=== PATIENT | male | born 1950 | race Caucasian/White ===

== ENCOUNTER 2021-09-09 07:26 | Day surgery (SDC) | payer MEDICARE ==
[2021-09-09] MEDS ORDERED: Sodium Chloride 0.9% 10 ML Syringe IV ONE (07:27)
[2021-09-09] MEDS ORDERED: Dexamethasone 4 MG/ML SDV IV ONE (07:27)
[2021-09-09] MEDS ORDERED: Midazolam 1 MG/ML 2 ML SDV IV ONE (07:27)
[2021-09-09] MEDS ORDERED: Acetaminophen/Codeine 300-30 MG Tab PO PRN (08:00)
[2021-09-09] MEDS ORDERED: Tobramycin 0.3% Ophth Drops 5 ML Bottle EYERT ONE (08:00)
[2021-09-09] MEDS ORDERED: Acetaminophen 325 MG Tab PO PRN (08:00)
[2021-09-09] MEDS ORDERED: Ondansetron 4 MG/2 ML SDV IVPUSH PRN (08:00)
[2021-09-09] MEDS: Proparacaine 0.5% Ophth Soln 15 ML Bottle EYERT ONE (08:08)
[2021-09-09] MEDS: Sodium Chloride 0.9% 10 ML Syringe FLUSH PRN (08:08)
[2021-09-09] MEDS: Moxifloxacin 0.5% Ophth Soln 3 ML Bottle EYERT ONE (08:10)
[2021-09-09] MEDS: Povidone-Iodine 5% Sterile Ophth Soln 30 ML Bottle EYERT ONE ×2 (08:10→09:42)
[2021-09-09] MEDS: Tropicamide 1% Ophth Soln 15 ML Bottle EYERT ONE (08:11)
[2021-09-09] MEDS: Phenylephrine 10% Ophth Soln 5 ML Bot EYERT PRN (08:12)
[2021-09-09] MEDS: Timolol Maleate 0.5% Ophth Soln 5 ML Bottle EYERT ONE (08:12)
[2021-09-09] MEDS: Cataract Ophth Solution EYERT ONE (08:14)
[2021-09-09] MEDS: Diclofenac Sodium 0.1% Ophth Soln 5 ML Bottle EYERT ONE (09:42)
[2021-09-09] MEDS: Tetracaine HCl/PF 0.5% 4 ML Bottle EYERT ONE (09:42)
[2021-09-09] MEDS: Balanced Salt Solution Ophth Irrig 500 ML Bottle IOCULAR ONE (09:43)
[2021-09-09] MEDS: Chondroitin Sulfate/Hyaluronate Sodium Ophth Inj 0.75 ML Syringe EYERT ONE (09:43)
[2021-09-09] MEDS: Apraclonidine 0.5% Ophth Soln 5 ML Bot EYERT ONE (09:43)
[2021-09-09] MEDS: Dexamethasone/Neomycin/Polymyxin B Ophth Oint 3.5 GM Tube EYERT ONE (09:43)
[2021-09-09] MEDS: Vancomycin 500 MG SDV EYERT ONE (09:44)
[2021-09-09] MEDS: Lidocaine 1% 30 ML SDV ONE (09:44)
--- NOTE | 2021-09-10 07:17 | OR ---
DATE: 09/09/2021 PREOPERATIVE DIAGNOSIS: Visually significant mixed cataract, right eye. POSTOPERATIVE DIAGNOSIS: Visually significant mixed cataract, right eye. PROCEDURE: Extracapsular cataract extraction with intraocular lens implant, right eye. ANESTHESIA: Topical/local MAC. COMPLICATIONS: None. INDICATIONS: Mr. Dahl was seen in the clinic. He has complained of a progressive decrease in vision. He has difficulty seeing books, feels like he is looking through a frosted window. He saw his regular neon light installer, Dr. Castillo. Dr. Castillo was not able to improve his vision and meet his visual needs with a change in glasses. I explained options, offered cataract surgery, and I explained risks including the potential for infection, retinal detachment, loss of vision, and need for additional surgery, amongst others. We discussed implant options. He has requested a toric implant. He understands that he may still require glasses for some activities. He also has a history of previous radial keratotomy and astigmatic keratotomy in the distant past. I explained that refractive predictability is significantly decreased because of the prior corneal procedure. He voiced understanding and requested surgery to improve vision and function. OPERATIVE DESCRIPTION: After informed consent was obtained and the risks, benefits, and alternatives were explained, the patient was brought to the operative suite and topical anesthesia was administered. The patient was then prepped and draped in the sterile fashion and attention was placed on the right eye. A sterile lid speculum was placed into the right eye to allow operative exposure. A full-thickness paracentesis was made in the temporal portion of the operative eye. Preservative-free lidocaine 0.1 mL was injected into the anterior chamber followed by viscoelastic. A full-thickness corneal incision was then made into the anterior chamber. A bent needle cystotome was used to create a small babs in the anterior capsule. The capsulorrhexis forceps was then used to create a 360-degree curvilinear capsulorrhexis. The nucleus was then removed using a phacoemulsification handpiece and the remaining cortical material was then removed with irrigation and aspiration handpiece. Following removal of the cortical material, the capsular bag was then inspected and noted to be free of any holes or tears. Viscoelastic was then injected into the capsular bag and the intraocular lens was inserted into the capsular bag. The implant was oriented to correspond with preoperative corneal rivera made with the patient in the upright position. The viscoelastic material was then removed from both the anterior and posterior chambers and from behind the IOL. The lens and capsular bag were then reinspected. The IOL was well centered and the capsular bag intact. The wound and paracentesis sites were inspected and hydrated with balanced saline solution. Both were found to be self-sealing. The intraocular pressure was assessed digitally and found to be within normal range. A good red reflex was noted at the completion of the procedure. No complications occurred during the operation. At the completion of the procedure, Maxitrol, Voltaren, and Iopidine drops were placed into the operative eye. A sterile eye shield was placed over the operative eye and the patient was transported to the postoperative recovery area having tolerated the procedure well. Postoperative instructions were given along with a postoperative appointment. The patient was advised to call with any questions or concerns. [facility] /[id number]
== END 2021-09-09 10:45 | disposition home or self-care (01) ==
LOC: DL.SDS 07:26
PROVIDERS: ATTEND Ophthalmology
DX: H26.8 Other specified cataract (principal); I25.10 Atherosclerotic heart disease of native coronary artery without angina pectoris; E78.5 Hyperlipidemia, unspecified; I10 Essential (primary) hypertension; E66.9 Obesity, unspecified; Z98.890 Other specified postprocedural states; I35.0 Nonrheumatic aortic (valve) stenosis
CPT/HCPCS: 00142; A9270-GY; J1100; J2250; J3370

== ENCOUNTER 2021-10-14 09:08 | Day surgery (SDC) | payer MEDICARE ==
[2021-10-14] MEDS ORDERED: Sodium Chloride 0.9% 10 ML Syringe IV ONE (09:09)
[2021-10-14] MEDS ORDERED: Midazolam 1 MG/ML 2 ML SDV IV ONE (09:09)
[2021-10-14] MEDS ORDERED: Dexamethasone 4 MG/ML SDV IV ONE (09:09)
[2021-10-14] MEDS ORDERED: Ondansetron 4 MG/2 ML SDV IVPUSH PRN (09:15)
[2021-10-14] MEDS ORDERED: Moxifloxacin 0.5% Ophth Soln 3 ML Bottle EYELF ONE (09:15)
[2021-10-14] MEDS ORDERED: Timolol Maleate 0.5% Ophth Soln 5 ML Bottle EYELF ONE (09:15)
[2021-10-14] MEDS ORDERED: Tropicamide 1% Ophth Soln 15 ML Bottle EYELF ONE (09:15)
[2021-10-14] MEDS ORDERED: Acetaminophen/Codeine 300-30 MG Tab PO PRN (09:15)
[2021-10-14] MEDS ORDERED: Tobramycin 0.3% Ophth Drops 5 ML Bottle EYELF SCH (09:15)
[2021-10-14] MEDS ORDERED: Cataract Ophth Solution EYELF ONE (09:15)
[2021-10-14] MEDS ORDERED: Phenylephrine 10% Ophth Soln 5 ML Bot EYELF ONE (09:15)
[2021-10-14] MEDS ORDERED: Povidone-Iodine 5% Sterile Ophth Soln 30 ML Bottle EYELF ONE ×2 (09:15→10:22)
[2021-10-14] MEDS ORDERED: Acetaminophen 325 MG Tab PO PRN (09:15)
[2021-10-14] MEDS ORDERED: Proparacaine 0.5% Ophth Soln 15 ML Bottle EYELF ONE (09:15)
[2021-10-14] MEDS ORDERED: Tetracaine HCl/PF 0.5% 4 ML Bottle EYELF ONE (10:22)
[2021-10-14] MEDS ORDERED: Chondroitin Sulfate/Hyaluronate Sodium Ophth Inj 0.75 ML Syringe EYELF ONE (10:23)
[2021-10-14] MEDS ORDERED: Apraclonidine 0.5% Ophth Soln 5 ML Bot EYELF ONE (10:23)
[2021-10-14] MEDS ORDERED: Diclofenac Sodium 0.1% Ophth Soln 5 ML Bottle EYELF ONE (10:23)
[2021-10-14] MEDS ORDERED: Dexamethasone/Neomycin/Polymyxin B Ophth Oint 3.5 GM Tube EYELF ONE (10:23)
[2021-10-14] MEDS ORDERED: Balanced Salt Solution Ophth Irrig 500 ML Bottle IOCULAR ONE (10:23)
[2021-10-14] MEDS ORDERED: Vancomycin 500 MG SDV EYELF ONE (10:24)
[2021-10-14] MEDS ORDERED: Lidocaine 1% 30 ML SDV ONE (10:24)
--- NOTE | 2021-10-15 09:54 | OR ---
DATE: 10/14/2021 PREOPERATIVE DIAGNOSIS: Visually significant mixed cataract, left eye. POSTOPERATIVE DIAGNOSIS: Visually significant mixed cataract, left eye. PROCEDURE: Extracapsular cataract extraction with intraocular lens implant, left eye. ANESTHESIA: Topical/local MAC. COMPLICATIONS: None. INDICATION: Mr. Dahl was seen in the clinic with complaints of blurred vision. Examination revealed visually significant mixed cataract. He is unhappy with his vision noticing a slow progressive change. He did see Dr. Castillo. Dr. Castillo was not able to improve his vision and meet his visual needs with a change in glasses. He has difficulty with multiple activities of daily living including driving, reading, and notes his vision feels like he is looking through a window. I offered cataract surgery and I explained risks including but not limited to infection, retinal detachment, loss of vision and need for additional surgery amongst others. We discussed implant options. He has requested a toric implant. He has a history of radial keratotomy and astigmatic keratotomy. I explained that his refractive predictability is significantly decreased because of the prior procedure. He also understands that he may need glasses regardless of implant choice. He has voiced understanding with respect to risks and limitations and wished to proceed. OPERATIVE DESCRIPTION: After informed consent was obtained and the risks, benefits, and alternatives were explained, the patient was brought to the operative suite and topical anesthesia was administered. The patient was then prepped and draped in the sterile fashion and attention was placed on the left eye. A sterile lid speculum was placed into the left eye to allow operative exposure. A full-thickness paracentesis was made in the temporal portion of the operative eye. Preservative-free lidocaine 0.1 mL was injected into the anterior chamber followed by viscoelastic. A full-thickness corneal incision was then made into the anterior chamber. A bent needle cystotome was used to create a small babs in the anterior capsule. The capsulorrhexis forceps was then used to create a 360-degree curvilinear capsulorrhexis. The nucleus was then removed using a phacoemulsification handpiece and the remaining cortical material was then removed with irrigation and aspiration handpiece. Following removal of the cortical material, the capsular bag was then inspected and noted to be free of any holes or tears. Viscoelastic was then injected into the capsular bag and the intraocular lens was inserted into the capsular bag. The implant was oriented to correspond with preoperative corneal rivera made with the patient in the upright position. The viscoelastic material was then removed from both the anterior and posterior chambers and from behind the IOL. The lens and capsular bag were then reinspected. The IOL was well centered and the capsular bag intact. The wound and paracentesis sites were inspected and hydrated with balanced saline solution. Both were found to be self-sealing. The intraocular pressure was assessed digitally and found to be within normal range. A good red reflex was noted at the completion of the procedure. No complications occurred during the operation. At the completion of the procedure, Maxitrol, Voltaren, and Iopidine drops were placed into the operative eye. A sterile eye shield was placed over the operative eye and the patient was transported to the postoperative recovery area having tolerated the procedure well. Postoperative instructions were given along with a postoperative appointment. The patient was advised to call with any questions or concerns. [facility] /[id number]
== END 2021-10-14 11:43 | disposition home or self-care (01) ==
LOC: DL.SDS 09:08
PROVIDERS: ATTEND Ophthalmology
DX: H26.8 Other specified cataract (principal); I10 Essential (primary) hypertension; I25.10 Atherosclerotic heart disease of native coronary artery without angina pectoris; E66.9 Obesity, unspecified; Z79.899 Other long term (current) drug therapy; Z79.82 Long term (current) use of aspirin
CPT/HCPCS: 00142; A9270-GY; J1100; J2250; J3370

== ENCOUNTER 2024-08-17 11:27 | Emergency (ER) | payer MEDICARE ==
[2024-08-17] MEDS ORDERED: Sodium Chloride 0.9% 10 ML Syringe FLUSH PRN (11:48)
[2024-08-17 12:02] LABS: BASOPHILS PERCENT AUTO 0.3 % (0.0-1.0); EOSINOPHILS PERCENT AUTO 0.2 % (1.0-3.0); HEMOGLOBIN 15.2 g/dL (14.0-18.0); LYMPHOCYTES PERCENT AUTO 11.6 % (20.5-50.1); MEAN CORPUSCULAR HEMOGLOBIN 30.7 pg (27.0-34.0); MEAN CORPUSCULAR VOLUME 92.9 fL (80-100); MONOCYTES PERCENT AUTO 12.1 % (2-8); NEUTROPHILS PERCENT AUTO 75.8 % (42.2-75.2); PLATELET COUNT,PLT 312 10^3/uL (150-450); RED BLOOD CELL COUNT 4.95 10^6/uL (4.6-6.2)
[2024-08-17] MEDS: Metoprolol Tartrate 5 MG/5 ML SDV IVPUSH ONE (12:10)
[2024-08-17] MEDS: Sodium Chloride 0.9% 1,000 ML IV ONE (12:10)
[2024-08-17 12:20] LABS: INR 1.1 (0.9-1.2); PROTHROMBIN TIME 11.3 SEC (9.0-12.0); PTT,PARTIAL THROMBOPLSTIN TIME 26.3 SEC (22.0-34.0)
[2024-08-17 12:23] LABS: ALBUMIN 3.7 g/dL (3.4-5.0); ANION GAP 14.3 mEq/L (7-13); BILIRUBIN TOTAL 0.9 mg/dL (0.2-1.0); CALCIUM 9.9 mg/dL (8.5-10.1); CREATININE 1.4 mg/dL (0.70-1.30); POTASSIUM,K 4.3 mmol/L (3.5-5.1); PROTEIN TOTAL,TP 7.3 g/dL (6.4-8.2)
[2024-08-17] MEDS: Heparin Sodium 5,000 Units/ML Vial IVPUSH ONE (12:35)
[2024-08-17] MEDS: Heparin Sodium/0.45% NaCl 25,000 UNITS/500 ML BAG IV SCH (12:37)
[2024-08-17] MEDS: Ketamine 500 mg/10 ML MDV IV ONE (13:10)
[2024-08-17] MEDS: Aspirin 81 MG Tab.Chew PO ONE (14:00)
== END 2024-08-17 14:05 ==
LOC: DL.ED 11:27
DX: I21.4 Non-ST elevation (NSTEMI) myocardial infarction (principal); I10 Essential (primary) hypertension; I25.10 Atherosclerotic heart disease of native coronary artery without angina pectoris; E78.00 Pure hypercholesterolemia, unspecified; Z79.899 Other long term (current) drug therapy
CPT/HCPCS: 36415; 71045; 80053; 83690; 83735; 83880; 84484; 85025; 85610; 85730; 86140; 92960; 93005; 93010; 96365; 96375; 99285; A9270; J1644; J3490; J7030